=== PATIENT | female | born 1970 | race African-American/Black ===

== ENCOUNTER 2017-07-16 07:04 | Emergency (ER) | payer OTHER ==
[~2017-07-16] VITALS: Ht 157.5 cm; Wt 86.3 kg
[2017-07-16 07:12] VITALS: BP 168/99; PULSE 84; TEMP 36.9; O2SAT 98; Ht 157.5 cm; Wt 86.3 kg
[2017-07-16] MEDS ORDERED: NEOMYCIN/POLYMYX/HYDROCORT OT SOLN 10 ML BTL OT STA (07:24)
[2017-07-16] MEDS ORDERED: IBUPROFEN 600 MG TAB PO STA (07:24)
[2017-07-16] MEDS ORDERED: ACET-1256 PO (07:24)
--- NOTE | 2017-07-16 07:31 | EMERGENCY ROOM VISIT NOTE ---
ED Visit Note First contact with patient: 07:13 CHIEF COMPLAINT: Right Earache HISTORY OF PRESENT ILLNESS: This 47-year-old female patient presents to the emergency department, ambulatory, and states they have had a right sided earache and drainage which began at approximately 2 AM. The patient is a flight crew ordnanceman, and is from [facility]. She is heading home today, but doesn't feel that she will be able to fly due to the pain she is in. The pain is severe, and has been gradually increasing. They have noticed swelling and tenderness around the ear canal and pain below the ear on the upper neck. She states she did awake with a sore throat, but denies other symptoms. The patient is to she had a cavity which fell out of her tooth #30. The patient did see her dentist for this 4 days ago, and denies any dental pain. The pain is rated as severe and 10/10. The patient has not been swimming recently. The patient states the only thing she can think of that may have caused the pain and symptoms is using the phone on the plane which all of the flight attendants use. The patient states she normally cleans off the phone, but she did not do that this time. The patient denies a history of ear problems. The patient has not had other URI symptoms and cough, congestion, rhinorrhea, fever, chills, nausea, vomiting. The patient has not had a fever. The patient has taken 1 g of Tylenol without relief of the pain. REVIEW OF SYSTEMS: A 6 system review of systems was completed with positives and pertinent negatives listed in the HPI. ALLERGIES: None MEDICATIONS: None PMH: None SOCIAL HISTORY: The patient lives in [facility]. She is in town for work as a flight crew ordnanceman. The patient denies drug, alcohol, tobacco use. PHYSICAL EXAM: Vital Signs: Reviewed Nurse's notes, vital signs stable. GENERAL : This is an otherwise healthy 47-year-old female, in no acute distress, non toxic in appearance, well developed, well nourished. SKIN: Normal. MOUTH: The pharynx is normal in appearance and the tonsils are not enlarged. The airway is patent. There are no exudates over the tonsils. EARS: The right external auditory canal is very minimally swollen and inflamed but there is no tragal tenderness. The tympanic membrane is not erythematous or bulging. There is a small amount of dried serous fluid in the ear canal. There are no herpetic lesions or vesicles in the canal. The left tympanic membrane is pearly sorto without erythema or bulging and the external auditory canal is clear. HEART: Regular rate and rhythm without murmurs gallops or rubs. LUNGS: Clear to auscultation bilaterally without wheezes, rales or rhonchi. No dullness to percussion. No accessory muscle use. No retractions. ED COURSE: I examined the patient. Cortisporin otic suspension 4 drops were placed in the right ear. The patient was given a dose of 600 mg ibuprofen. I did offer the patient narcotic pain medication, but advised her that she would be unable to take this medication and work. The patient declines pain medication stronger than ibuprofen. The patient was discharged home in stable condition. DIFFERENTIAL DIAGNOSIS: Acute otitis media, acute otitis externa, acute sinusitis, strep pharyngitis, upper respiratory infection, lymphadenopathy, malignancy, and others. DIAGNOSIS: Acute right otitis externa DISCHARGE INSTRUCTIONS & TREATMENT: You have been treated in the Emergency Department for an Outer Ear Infection ( Otitis Externa). You were prescribed Cortisporin drops to be taken 4 drops, 4 times per day for 5 -7 days. This is an antibiotic. Stop this medication and contact a medical provider if you were to develop any significant adverse side effects including: wheezing, shortness of breath, passing out, vomiting, or a diffuse rash. Always take antibiotics as directed and COMPLETE the ENTIRE course regardless of the improvement of your symptoms. For pain and fever control, you can use the following [id number]-qktsrkr medicines (if >12 yo): Ibuprofen(Motrin, Advil) may be used for fever or pain. Use 600mg every six hours as needed. Take with food. Avoid using more than 2400mg in a 24 hour period. Do not use 2400mg per day for more than three consecutive days without physician direction. Prolonged inappropriate use can lead to stomach upset or ulcers. (AND/OR) Acetaminophen(Tylenol) may be used for fever or pain. Use 1000mg every six to eight hours as needed. Avoid using more than 3000mg in a 24 hour period. *You should alternate these medications every 3-4 hours for increased pain control. You should follow-up with your Primary Care Provider from today's Emergency Department visit. I suggest calling today to schedule an appointment for tomorrow or Friday when you get home. Return to the emergency department if you develop the following symptoms despite treatment course outlined above: headache, fever, intractable pain, increased redness, swelling, or purulent discharge. Current/Historical Medications Miscellaneous Medications Acetaminophen (Tylenol), 1,000 MG PO Allergies Coded Allergies: No Known Allergies (Unverified , 07/16/17) Vital Signs Date Time Temp Pulse Resp B/P (MAP) Pulse Ox O2 Delivery O2 Flow Rate FiO2 07/16/17 07:12 36.9 84 18 168/99 98 Room Air Departure Information Impression Primary Impression: Otitis externa of right ear Dispostion Home / Self-Care Condition GOOD Referrals No Doctor, Assigned (PCP) Patient Instructions ED Otitis Externa, [facility] Additional Instructions You have been treated in the Emergency Department for an Outer Ear Infection ( Otitis Externa). You were prescribed Cortisporin drops to be taken 4 drops, 4 times per day for 5 -7 days. This is an antibiotic. Stop this medication and contact a medical provider if you were to develop any significant adverse side effects including: wheezing, shortness of breath, passing out, vomiting, or a diffuse rash. Always take antibiotics as directed and COMPLETE the ENTIRE course regardless of the improvement of your symptoms. For pain and fever control, you can use the following [id number]-hyp-mtadpvr medicines (if >12 yo): Ibuprofen(Motrin, Advil) may be used for fever or pain. Use 600mg every six hours as needed. Take with food. Avoid using more than 2400mg in a 24 hour period. Do not use 2400mg per day for more than three consecutive days without physician direction. Prolonged inappropriate use can lead to stomach upset or ulcers. (AND/OR) Acetaminophen(Tylenol) may be used for fever or pain. Use 1000mg every six to eight hours as needed. Avoid using more than 3000mg in a 24 hour period. *You should alternate these medications every 3-4 hours for increased pain control. You should follow-up with your Primary Care Provider from today's Emergency Department visit. I suggest calling today to schedule an appointment for tomorrow or Friday when you get home. Return to the emergency department if you develop the following symptoms despite treatment course outlined above: headache, fever, intractable pain, increased redness, swelling, or purulent discharge. Problem Qualifiers Primary Impression: Otitis externa of right ear Otitis externa type: unspecified type Chronicity: acute Qualified Codes: H60.501 - Unspecified acute noninfective otitis externa, right ear
== END 2017-07-16 07:42 | disposition home or self-care (01) ==
LOC: C.EDB 07:06 → C.EDA 07:42
DX: H60.501 Unspecified acute noninfective otitis externa, right ear (principal)